=== PATIENT | male | born 1975 | race Two or more races ===

== ENCOUNTER 2021-07-02 13:26 | Emergency (ER) | payer SELFPAY ==
[~2021-07-02] VITALS: Ht 175.3 cm; Wt 63.5 kg
[2021-07-02 13:27] VITALS: BP 139/97
[2021-07-02] MEDS ORDERED: TETANUS-DIPTH-ACEL PERTUSSIS 0.5ML SYR Tdap IM ONE (19:45)
== END 2021-07-02 20:42 | disposition home or self-care (01) ==
LOC: ER 13:26
DX: S61.213A Laceration without foreign body of left middle finger without damage to nail, initial encounter (principal); W26.9XXA Contact with unspecified sharp object(s), initial encounter; Y93.89 Activity, other specified; Y92.89 Other specified places as the place of occurrence of the external cause; Y99.8 Other external cause status
CPT/HCPCS: 12002; 73130; 90471; 90715; 99283; J2001